=== PATIENT | female | born 1990 | race Two or more races ===

== ENCOUNTER → 2024-02-27 | Outpatient (CLI) | payer MEDICAID, SELFPAY ==
--- NOTE | 2024-02-27 14:16 | XR_ITS ---
Examination: Abdomen AP single view Technique: AP portable supine abdomen, single view Exam date and time: February 27, 2024 1422 hours INDICATIONS: History kidney stones and right ureteral stent placement FINDINGS: Right ureteral stent satisfactory position Stable 8 mm right ureteral calculus approximately compared with December 27, 2023 Small calculi in the lower pole and upper pole right kidney again noted IMPRESSION: Stable 8mm proximal right ureteral calculus
== END | disposition home or self-care (01) ==
PROVIDERS: Referring Provider Surgery; Visit Provider Surgery
DX: N20.1 Calculus of ureter (principal)
CPT/HCPCS: 74018

== ENCOUNTER → 2024-06-09 | Outpatient (CLI) | payer MEDICAID, SELFPAY ==
[2024-06-09 13:13] LABS: HCG Qualitative,Urine Negative
== END | disposition home or self-care (01) ==
LOC: SLAB 06-12 08:13
PROVIDERS: PCP Obstetrics & Gynecology; Referring Provider Surgery; Visit Provider Surgery
PROC: 0DBE8ZX Excision of Large Intestine, Via Natural or Artificial Opening Endoscopic, Diagnostic (ICD-10-PCS; CPT 45380; principal; 2024-06-10 08:00)
DX: K62.5 Hemorrhage of anus and rectum (principal)
CPT/HCPCS: 81025

== ENCOUNTER 2024-06-24 15:21 | Outpatient (AMB) | payer MEDICAID, SELFPAY ==
[2024-06-24 15:56] VITALS: BP 141/96; PULSE 88; RESP 16; TEMP 36.9; O2SAT 98; BMI 35.3
--- NOTE | 2024-06-24 15:56 | OBCLNT_ITS ---
Vital Signs 06/24/24 15:56 Height 1.57 m Height Method Stated Weight 87.543 kg Weight Measurement Method Standing Scale BMI 35.3 BP 141/96 H Blood Pressure Source Automatic Cuff Blood Pressure Location Left Upper Arm Position Sitting Respiration 16 Pulse 88 Pulse Source Monitor Temp 98.4 F Temp Source Oral Pulse Oximetry (%) 98 Oxygen Delivery Method Room Air Allergies/Home Meds Allergies & Medications Allergies No Known Allergies Allergy (Verified 06/24/24 15:58) Medication Reconciliation No Known Home Medications 06/09/24 [History Confirmed 06/24/24] Intake Visit Data Collection New Patient or Established: Established Patient (seen at [facility] within 3 years) Reason for Visit:: INITIAL CARE Seen by Clinical Staff ONLY (RN/MA): No Armature Straightener Required: No Do You Feel Safe at Home: Yes Authorities Contacted: N/A PCP or OBGYN visit in last 3 months: No Hx Now: Yes Are you currently on any form of Control: No Last menstrual period: 11/03/24 Pain Present Currently: No Pain Scale Used: Lewis-Bravo/Numerical Pain scale:: 0 Smoking Status Smoking Status: Never smoker Questionnaires Covid-19 Vaccine Questionnaire Has patient been vacinated for Covid-19 Have you been vacinated for Covid-19: No PHQ-9 PHQ-2 Over the last 2 weeks, how often have you been bothered by any of the following problems? 1. Little interest or pleasure in doing things: not at all 2. Feeling down, depressed, or hopeless: not at all Total score: 0 PHQ-9 3. Trouble falling or staying asleep, or sleeping too much: Not at all 4. Feeling tired or having little energy: Not at all 5. Poor appetite or overeating: Not at all 6. Feeling bad about yourself - or that you are a failure or have let yourself or your family down: Not at all 7. Trouble concentrating on things, such as reading the newspaper or watching television: Not at all 8. Moving or speaking so slowly that other people could have noticed? - Or the opposite - being so fidgety or restless that you have been moving around a lot more than usual: not at all 9. Thoughts that you would be better off or of hurting yourself in some way: Not at all Total score: 0 Source: Developed by Drs. Dheeraj Toro, Felicitas Fitzpatrick, Herb Powell and colleagues, with an educational eduar from [employer]. Depression screen completed yes Social History Living Situation History Marital Status: Lives With: Family Housing: House Tobacco History Smoking Status: Never smoker Second Hand Smoke Exposure: No Alcohol History Alcohol Intake: Never Domestic Abuse History Do You Feel Safe at Home: Yes Past Medical History Past Medical History Have you ever been diagnosed with any of the following: Neurological Problems Cerebrovascular Accident (CVA): No Transient Ischemic Attacks (TIA): No Dementia: No Alzheimer's Disease: No Parkinson's Disease: No Brain Tumor: No Meningitis: No Seizures: No Guillain-[place] Syndrome: No Cardiology Problems Myocardial Infarction: No Cardiac Arrhythmia: No Atrial Fibrillation: No Angina: No Heart Murmur: No Coronary Artery Disease: No Atherosclerotic Heart Disease: No Peripheral Vascular Disease: No Hypercholesterolemia: No Congestive Heart Failure: No Edema: No Cellulitis: No Hypertension: No Varicose Veins: No Respiratory Problems Chronic Obstructive Pulmonary Disease (COPD): No Asthma: No Tuberculosis: No Sleep Apnea: No Hx Cough: No Cough: No Wheezing: No Chest Deformities: No Smoking: No Smoking Cessation Counseling: No Smoking Exposure: No Tobacco Use: No Stomache/Intestinal Problems Liver Cancer: No Hepatitis: No Gall Bladder Disease: Yes Irritable Bowel: No Crohn's Disease: No Genital/Urinary Problems Chronic Kidney Disease: No Renal Disease: No Kidney Stones: Yes (ESWL) Reproductive Problems Breast Cancer: No Endometriosis: No Fibroids: No Genital Herpes: No Previous Pregnancies: Yes (X2) Musculoskeletal Problems Muscular Dystrophy: No Gout: No Head,Eye,Nose,Throat Problems Cataracts: No Glaucoma: No Blind: No Retinal Detachment: No Macular Degeneration: No Chronic Ear Infections: No Deafness: No Eye Prosthesis: No Endocrine Problems Diabetes Mellitus Type 1: No Diabetes Mellitus Type 2: No (FATHER) Boyce's Syndrome: No [place]'s Disease: No Blood Problems Anemia: No Leukemia: No Hemophilia: No Thalassemia: No Sickle Cell Disease: No Psychologic Problems Schizophrenia: No Recreational Drug Use: No Bipolar Disorder: No Depression: No Anxiety: No Other Problems Hospitalization: No Autoimmune Disease: No Down Syndrome: No Autism: No Developmental Delay: No Cosmetic Surgery: No Shingles: No Falls: No Blood Transfusions: No Blood Transfusion Reaction: No Anesthesia Reactions: No Chemotherapy: No Radiation Therapy: No MRSA: No Chicken Pox: Yes Measles: No Mumps: No Cancer: No Surgical History Angioplasty: No Cholecystectomy: Yes Pacemaker: No Additional Surgical History: KIDNEY STONES, LASER SURGERY History of Present Illness HPI Narrative 33-year-old 3 para 2 to the [facility] clinic for first OB appointment. Patient's last period was May 09, 2024. This gives a due date of February 12, 2025. She states her periods are every month they last 5 days. Patient has sure dates. Denies social habits. Patient had her gallbladder removed. She also had kidney stone removed as well.. Denies chronic illness. History of allergies. Patient takes Zyrtec to help with those symptoms. Patient's mother has history of colon cancer. She reports that both of her deliveries were normal and no complications. Reports bleeding x 24 hours yesterday. Bleeding was pink with mucus. Patient denies no bleeding at this time. She also denies any signs and symptoms of early . She has been started on vitamins. Both patient and are happy with OB Initial Visit OB Flowsheet OB Flowsheet Initial Weight: Not Recorded Date -?-?-?-?-?-?-?-?-?--?-?-?- EGA Weight Edema CTX Effacement BP Fundal ht Pres Dilation Effacement Station Visit Note Alb Glu FHR Mov 06/24/24 -?-?-?-?-?-?-?-?-?-?-?-?- 6w 4d 87.543 kg absent absent 141/96 28-year-old 3 para 2 for first visit to [facility] clinic. Patient's last period May 09, 2024. Patient has show dates. This makes her 7 weeks today. Complains of bleeding 24 hours ago. With some mucus. She reports no bleeding today at this time. Denies cramps. Denies signs and symptoms of early . Beta-hCG x 2. OB panel ordered. An ultrasound for rule out SAB and viability. Patient will return after labs and sono are done for further evaluation. And I discussed SAB precautions with patient. Increase rest. Increase fluids. Continue vitamins. Menstrual History Menstrual reliability: definite Flow: normal Menstrual regularity: regular Monthly: Yes Age at menarche: 11 On control pills at conception: No Date of positive home test: 06/10/24 Associated symptoms (LMP): Reports breast tenderness and other (VAGINAL D ISCHARGE) OB History : 3 Para: 2 # of Living Children: 2 Delivery History 1st : Child's name: GABBY date: 12/23/07 sex: female Delivery type: vaginal Delivery complications: NONE History of depression before or after : No 2nd : Child's name: BETO date: 10/07/14 sex: male Delivery type: vaginal Delivery complications: NONE History of depression before or after : No Infection History & Risk Evaluation History of STDs: none HIV risk evaluation: low risk Hepatitis B risk evaluation: low risk Patient or partner has history of Genital Herpes: No Genetic Screening & History Genetic Screening/Teratology Counseling - Includes patient, baby's father, or anyone in either family with: 1. Patient's age 35 years or older as of estimated date of delivery: No 2. Thalassemia (Danish, Estonian, Mediterranean, or Background); MCV less than 80: No 3. Neural Tube Defect (Meningomyelocele, Spina Bifida, or Anencephaly): No 4. Congenital Heart Defect: No 5. Down Syndrome: No 6. Pierre-Sachs (Ashkenazi Sikhism, Cajun, Swedish Somali): No 7. Tate Disease (Ashkenazi Sikhism): No 8. Familial Dysautonomia (Ashkenazi Sikhism): No 9. Sickle Cell Disease or Trait (): No 10. Hemophilia or other blood disorders: No 11. Muscular Dystrophy: No 12. Cystic Fibrosis: No 13. Durham's Chorea: No 14. Mental Retardation/Autism: No 15. Other inherited genetic or chromosomal disorder: No 16. Maternal Metabolic Disorder (EG,TYPE 1 Diabetes, PKU): No 17. Patient or baby's father had a child with defects not listed above: No 18. Recurrent loss or a stillbirth: No 19. Medications (including supplements, vitamins, herbs or otc drugs)/illicit/recreational drugs/alcohol since last menstrual period: No 20. Any other: No Infection History 1. Live with someone with TB or exposed to TB: No 2. Rash or viral illness since last menstrual period: No 3. Hepatitis B,C: No Other (see comments) Source: [employer] Exam General Limitations: no limitations General Appearance: alert, in no apparent distress, comfortable, cooperative, healthy appearing, well developed and well groomed Head Head exam: atraumatic, normocephalic and normal inspection Chest Chest inspection: Present normal inspection and symmetric chest wall rise Resp Respiratory exam: Present normal lung sounds bilaterally Card Cardiovascular exam: Present regular rate, normal rhythm and normal heart sounds Abdominal Abdominal exam: Present soft and normal bowel sounds Psych Psychiatric exam: Present normal affect and normal mood Assessment & Plan Diagnosis / Problem List (1) Encounter for supervision of normal in multigravida in first trimester: Status: Acute (2) , threatened, early : Status: Acute Plan SAB precautions discussed with patient. No heavy lifting. Rest. Continue vitamins. Beta-hCG's time 2. Ordered OB panel. Ordered OB sono with vaginal probe for viability. Return after ultrasound and hCGs for follow- up. ER precautions given to patient Additional Plan Follow Up: 1 Week (OB check) Office Procedures OB Clinic LOC & Office Proc's Nursing/Assessment Patient Status: Established Patient OB Clinic Nursing Assessment: Medication Reconciliation, Update PMH in EMR and Vital Signs OB Clinic Coordination of Care: Complex Care and Chronic Disease 1-5, Consent,records obtained, informed consent, Education Simp Pt/Fam, Lab and Imaging orders, Results/Orders obtained and Staff clarify orders Special Needs: Heart tones Established Patient Charge Established Patient Point Assignment: 135 Established Patient Point Charge: EP Level 4 (120-155)
--- NOTE | 2024-06-30 15:57 | OBCLNT_ITS ---
Vital Signs 06/24/24 15:56 06/30/24 16:04 Height 1.57 m Height Method Stated Weight 87.543 kg Weight Measurement Method Standing Scale BMI 35.3 BP 141/96 H 141/96 H Blood Pressure Source Automatic Cuff Blood Pressure Location Left Upper Arm Position Sitting Respiration 16 16 Pulse 88 88 Pulse Source Monitor Temp 98.4 F 98.4 F Temp Source Oral Pulse Oximetry (%) 98 98 Oxygen Delivery Method Room Air Allergies/Home Meds Allergies & Medications Allergies No Known Allergies Allergy (Verified 06/30/24 15:43) Medication Reconciliation No Known Home Medications 06/09/24 [History Confirmed 06/30/24] Intake Visit Data Collection New Patient or Established: Established Patient (seen at [facility] within 3 years) Reason for Visit:: threatened sab Do You Feel Safe at Home: Yes Authorities Contacted: N/A PCP or OBGYN visit in last 3 months: Yes Smoking Status Smoking Status: Never smoker Questionnaires Covid-19 Vaccine Questionnaire Has patient been vacinated for Covid-19 Have you been vacinated for Covid-19: No PHQ-9 PHQ-2 Over the last 2 weeks, how often have you been bothered by any of the following problems? 1. Little interest or pleasure in doing things: not at all PHQ-9 3. Trouble falling or staying asleep, or sleeping too much: Not at all 4. Feeling tired or having little energy: Not at all 5. Poor appetite or overeating: Not at all 6. Feeling bad about yourself - or that you are a failure or have let yourself or your family down: Not at all 7. Trouble concentrating on things, such as reading the newspaper or watching television: Not at all 8. Moving or speaking so slowly that other people could have noticed? - Or the opposite - being so fidgety or restless that you have been moving around a lot more than usual: not at all Source: Developed by Drs. Dheeraj Toro, Felicitas Fitzpatrick, Herb Powell and colleagues, with an educational eduar from [employer]. Social History Living Situation History Marital Status: Lives With: Family Housing: House Tobacco History Smoking Status: Never smoker Second Hand Smoke Exposure: No Alcohol History Alcohol Intake: Never Domestic Abuse History Do You Feel Safe at Home: Yes Past Medical History Past Medical History Have you ever been diagnosed with any of the following: Neurological Problems Cerebrovascular Accident (CVA): No Transient Ischemic Attacks (TIA): No Dementia: No Alzheimer's Disease: No Parkinson's Disease: No Brain Tumor: No Meningitis: No Seizures: No Guillain-Day[place] Syndrome: No Cardiology Problems Myocardial Infarction: No Cardiac Arrhythmia: No Atrial Fibrillation: No Angina: No Heart Murmur: No Coronary Artery Disease: No Atherosclerotic Heart Disease: No Peripheral Vascular Disease: No Hypercholesterolemia: No Congestive Heart Failure: No Edema: No Cellulitis: No Hypertension: No Varicose Veins: No Respiratory Problems Chronic Obstructive Pulmonary Disease (COPD): No Asthma: No Tuberculosis: No Sleep Apnea: No Hx Cough: No Cough: No Wheezing: No Chest Deformities: No Smoking: No Smoking Cessation Counseling: No Smoking Exposure: No Tobacco Use: No Stomache/Intestinal Problems Liver Cancer: No Hepatitis: No Gall Bladder Disease: Yes Irritable Bowel: No Crohn's Disease: No Genital/Urinary Problems Chronic Kidney Disease: No Renal Disease: No Kidney Stones: Yes (ESWL) Reproductive Problems Breast Cancer: No Endometriosis: No Fibroids: No Genital Herpes: No Previous Pregnancies: Yes (X2) Musculoskeletal Problems Muscular Dystrophy: No Gout: No Head,Eye,Nose,Throat Problems Cataracts: No Glaucoma: No Blind: No Retinal Detachment: No Macular Degeneration: No Chronic Ear Infections: No Deafness: No Eye Prosthesis: No Endocrine Problems Diabetes Mellitus Type 1: No Diabetes Mellitus Type 2: No (FATHER) Dike's Syndrome: No Haines's Disease: No Blood Problems Anemia: No Leukemia: No Hemophilia: No Thalassemia: No Sickle Cell Disease: No Psychologic Problems Schizophrenia: No Recreational Drug Use: No Bipolar Disorder: No Depression: No Anxiety: No Other Problems Hospitalization: No Down Syndrome: No Autism: No Developmental Delay: No Cosmetic Surgery: No Shingles: No Falls: No Blood Transfusions: No Blood Transfusion Reaction: No Anesthesia Reactions: No Chemotherapy: No Radiation Therapy: No MRSA: No Chicken Pox: Yes Measles: No Mumps: No Cancer: No Surgical History Angioplasty: No Cholecystectomy: Yes Pacemaker: No Additional Surgical History: KIDNEY STONES, LASER SURGERY History of Present Illness HPI Narrative 33-year-old 3 para 2 for follow-up to [facility]. Patient reports heavier bleeding on 06/26/24 and she went to [facility] ED for evaluation. June 26 ultrasound showed empty uterus. Normal endometrial stripe of 0.6. No masses. No evidence of intrauterine . Ovaries were normal. It was a negative pelvic exam. hCG x 2 were done. Patient reports spotting now. No complaints of pain. OB sono has not been scheduled yet at [facility]. No other complaints. Review of Systems Review of Systems Systems Reviewed: All systems reviewed, normal except as documented Visit OB Visit Log OB Flowsheet Initial Weight: Not Recorded Date -?-?-?-?-?-?-?-?-?-?-?-?- EGA Weight Edema CTX Effacement BP Fundal ht Pres Dilation Effacement Station Visit Note Alb Glu FHR Mov 06/24/24 -?-?-?-?-?-?-?-?-?-?-?-?- 6w 4d 87.543 kg absent absent 141/96 141/96 28-year-old g ravida 3 para 2 for first visit to [facility] OB clinic. Patient's last period May 09, 2024. Patient has show dates. This makes her 7 weeks today. Complains of bleeding 24 hours ago. With some mucus. She reports no bleeding today at this time. Denies cramps. Denies signs and symptoms of early . Beta-hCG x 2. OB panel ordered. An ultrasound for rule out SAB and viability. Patient will return after labs and sono are done for further evaluation. And I discussed SAB precautions with patient. Increase rest. Increase fluids. Continue vitamins. ALEXANDRA Calculator Estimated Delivery Date Method Current WG Current Estimate 02/13/25 LMP (Certain) 7w 3d Results Objective Laboratory: HC/16: 321, 06/26: 466 Imagin/17: empty uterus, no IUP seen, no pelvic mass, normal uterine size Exam Narrative Physical exam: OB ultrasound June 26 the uterus was measuring 8.5 cm. Endometrial stripe was 0.6 cm. There was no noted mass loss, no fibroids, no intrauterine noted. Both ovaries were normal in size no cystic structure seen. And negative pelvic exam. Abdomen is soft and nontender. hcg 06/25/24: 321. repeat hc General Limitations: no limitations General Appearance: alert, in no apparent distress, comfortable, cooperative, healthy appearing, well developed and well groomed Head Head exam: atraumatic, normocephalic and normal inspection Eye Eye exam: Present normal appearance, PERRL and EOMI ENT ENT exam: Present normal exam, normal oropharynx and mucous membranes moist Neck Neck exam: Present normal inspection, full ROM and trachea midline Chest Chest inspection: Present normal inspection and symmetric chest wall rise Resp Respiratory exam: Present normal lung sounds bilaterally Card Cardiovascular exam: Present regular rate, normal rhythm and normal heart sounds Abdominal Abdominal exam: Present soft and normal bowel sounds Extremities Extremities exam: Present normal inspection and full ROM Back Back exam: Present normal inspection and full ROM Neuro Neurological exam: Present alert, oriented X3 and CN II-XII intact Psych Psychiatric exam: Present normal affect and normal mood Skin Skin exam: Present warm, dry, intact and normal color Assessment & Plan Diagnosis / Problem List (1) , threatened, early : Status: Acute Plan Continue with SAB precautions. hCG today and then patient will repeat hCG 07/10. Keep appointment with [facility] for ultrasound. Discussed ER precautio ns and parameters. Rest. Return after pelvic ultrasound and hCG's for results. Additional Plan Follow Up: 2 Weeks (f/u threatened SAB) Office Procedures OB Clinic LOC & Office Proc's Nursing/Assessment Patient Status: Established Patient OB Clinic Nursing Assessment: Medication Reconciliation, Update PMH in EMR and Vital Signs OB Clinic Coordination of Care: Complex Care and Chronic Disease 1-5, Consent,records obtained, informed consent, Education Simp Pt/Fam, Lab and Imaging orders, Results/Orders obtained and Staff clarify orders Special Needs: Heart tones Established Patient Charge Established Patient Point Assignment: 135 Established Patient Point Charge: EP Level 4 (120-155)
[2024-06-30 16:04] VITALS: BP 141/96; PULSE 88; RESP 16; TEMP 36.9; O2SAT 98
== END 2024-06-24 16:23 | disposition home or self-care (01) ==
LOC: HODSOBC 15:21
PROVIDERS: PCP Obstetrics & Gynecology; Referring Provider Obstetrics & Gynecology; Supervising Provider Advanced Practice Midwife; Visit Provider Advanced Practice Midwife
DX: O20.0 Threatened abortion (principal); Z3A.01 Less than 8 weeks gestation of pregnancy
CPT/HCPCS: 99214; G0463

== ENCOUNTER 2024-06-26 15:16 | Emergency (ER) | payer MEDICAID, SELFPAY ==
[2024-06-26 15:17] VITALS: BMI 34.7
[2024-06-26 16:16] VITALS: BP 149/90; PULSE 85; RESP 16; TEMP 37.3; O2SAT 100
--- NOTE | 2024-06-26 16:25 | XR_ITS ---
Examination: Complete OB ultrasound, less than 14 weeks, transabdominal Date and time of exam: June 1703 hrs. Indications: Pelvic pain and cramping vaginal bleeding beginning one week ago Technique: Obstetrical ultrasound images less than 14 weeks performed via transabdominal imaging Findings: Uterus 8.5 cm endometrial stripe 0.6 cm No uterine mass or intrauterine gestation Right ovary 2.9 cm arterial flow Left ovary 3.8 cm arterial flow Impression: Negative examination
--- NOTE | 2024-06-26 16:26 | PD.EDRME ---
Rapid Medical Screening Exam RME Arrival date/time: 06/26/24 15:16 33-year-old female presents the emergency department with complaints of vaginal bleeding approximately 8 weeks of gestation. I have greeted and performed a focused initial assessment of this patient. Initial appropriate labs ordered at this time. A comprehensive ED assessment and evaluation of the patient and analysis of all test and completion of medical decision making process will be conducted by additional ED provider. Chief Complaint: Vaginal Bleeding Time Seen by Provider: 06/26/24 16:12 Vital signs: Vital Signs Temperature 99.1 F 06/26/24 16:16 Pulse Rate 85 06/26/24 16:16 Respiratory Rate 16 06/26/24 16:16 Blood Pressure 149/90 H 06/26/24 16:16 Pulse Oximetry (%) 100 06/26/24 16:16 Oxygen Delivery Method Room Air 06/26/24 16:16
[2024-06-26 16:48] LABS: Basophils # (Auto) 0.1 Thou/mm3 (0.0-0.2); Basophils % (Auto) 1 % (0-2.5); Eosinophils # (Auto) 0.1 Thou/mm3 (0.0-0.5); Eosinophils % (Auto) 1 % (0-10); Hematocrit 40.1 % (36.0-46.0); Immature Granulocytes % (Auto) 1 % (0-0); Lymphocytes # (Auto) 3.6 Thou/mm3 (1.0-4.8); Lymphocytes % (Auto) 34 % (10-50); Mean Corpuscular HGB Conc 34.9 g/dl (31.0-37.0); Mean Corpuscular Hemoglobin 31.8 pg (25.0-35.0); Mean Corpuscular Volume 91 fL (80-100); Monocytes # (Auto) 0.8 Thou/mm3 (0.0-0.8); Monocytes % (Auto) 7 % (0-12); Neutrophils % (Auto) 56 % (37-80); Nucleated Red Blood Cell % 0 /100 WBC (0); Platelet Count 323 Thou/mm3 (140-440); RDW Standard Deviation 41.4 fL (36.4-46.3); White Blood Count 10.7 Thou/mm3 (3.6-11.0)
[2024-06-26 17:14] LABS: Alanine Aminotransferase 40 U/L (10-49); Albumin, Serum 4.4 gm/dL (3.5-5.0); Albumin/Globulin Ratio 1.5 (1.2-2.2); Alkaline Phosphatase 60 U/L (46-116); Anion Gap 8 (7-16); Aspartate Amino Transferase 25 U/L (0-34); BUN/Creatinine Ratio 10 Ratio (12-20); Beta HCG,Quantitative 466 mIU/mL (<5.0); Bilirubin,Total 0.4 mg/dL (0.3-1.2); Blood Urea Nitrogen 6 mg/dL (9-23); Calcium 9.2 mg/dL (8.3-10.6); Calcium (Corrected) 9.2 mg/dL (8.5-10.1); Carbon Dioxide 24.5 mMol/L (20.0-31.0); Chloride 109 mMol/L (98-107); Creatinine (Component) 0.6 mg/dL (0.6-1.3); Estimated Creatinine Clearance 135.9 mL/min (>60); Globulin 2.9 gm/dL (2.3-3.5); Glucose 92 mg/dL (74-106); Osmolality,Calculated 278 (275-295); Sodium 141 mMol/L (136-145); Total Protein 7.3 gm/dL (5.7-8.2); eGFR > 60 See Note
[2024-06-26 18:28] LABS: Collection Type, Urine Clean Catch
[2024-06-26 18:37] LABS: Bilirubin,Urine Negative (Negative); Blood,Urine 2+ (Negative); Clarity,Urine Clear (Clear/Hazy); Color,Urine Lt-Yellow (Lt Yel-Yel); Glucose, Urine Negative (Negative); Ketones,Urine Negative (Negative); Leukocyte Esterase,Urine Positive (Negative); Nitrite,Urine Negative (Negative); PH,Urine 6.5 (5.0-7.0); Protein,Urine Negative (Neg - Trace); RBC,Urine 3 /hpf (0-3); Specific Gravity,Urine 1.011 (1.001-1.035); Squamous Epithelial Cell,Urine 4 /hpf (0-5); Urobilinogen,Urine Negative mg/dL (0.0-1.0); WBC,Urine 9 /hpf (0-5)
[2024-06-26 19:38] VITALS: BP 160/80; PULSE 91; RESP 18; TEMP 36.4; O2SAT 98
--- NOTE | 2024-06-26 19:42 | EDNOTE_ITS ---
ED OB Contraction Preg RMI/HPI General Chief complaint: Vaginal Bleeding Stated complaint: 7 WKS OB- VAGINAL BLEED Time Seen by Provider: 06/26/24 16:12 Arrival date/time: 06/26/24 15:16 RME / HPI RME / HPI Narrative: 33-year-old female patient 3 para 2, about 8 weeks , came in for evaluation regarding vaginal bleeding. Patient's been having vaginal bleeding for the last 4 to 5 days, changing 1-2 pads per day. Associated with pelvic cramping. Patient was seen by ASSISTANT MANAGER/EMBALMER and was told that she is 8 weeks . Patient denies any other complaints Related Data Home Medications ?Medication ?Instructions ?Recorded ?Confirmed No Known Home Medications 06/09/2406/10 Allergies Allergy/AdvReac Type Severity Reaction Status Date / Time No Known Allergies Allergy Verified 06/26/24 15:19 Review of Systems Review of Systems Narrative Review of Systems: Review of system reviewed and within normal limits except mentioned in HPI ED Exam Narrative Physical exam: VITAL SIGNS: Reviewed. GENERAL APPEARANCE: Alert and interactive, follows commands, no acute distress, HEAD AND FACE: Non-traumatic. ENT: PERRL, pink conjunctivitis, eyelid no trauma, Mucous membrane moist. NECK: Supple, nontender, no nuchal rigidity. CHEST: No tenderness, no crepitus, no paradoxical movement, no retractions. LUNGS: Clear, well ventilated, symmetric, no rales, no wheezing, no ronchi, no stridor, good breath sounds bilaterally. HEART: Regular rate, regular rhythm, no murmur, no gallops. ABDOMEN: Soft, positive bowel sounds, nondistended, no guarding, nontender, no rebound, no masses, RECTAL: Deferred. GENITAL: Deferred. NEUROLOGICAL: Gross motor function intact sensory function intact, Appropriate for age. MUSCULOSKELETAL: low back nontender, full range of motion. EXTREMITIES: Nontender, full range of motion. SKIN: Color pink, dry, no rash, no lacerations, no abrasions, no contusions. LYMPHATICS: Deferred. Course Quality Measures none Orders Category Date Time Status US OB <= 14 weeks fetus Stat Exams 06/26/24 16:25 Completed ABO/RH Type Stat Lab 06/26/24 16:33 Completed Beta HCG,Quantitative Stat Lab 06/26/24 16:33 Completed CBC Stat Lab 06/26/24 16:33 Completed Comprehensive Metabolic Panel Stat Lab 06/26/24 16:33 Completed Urinalysis Stat Lab 06/26/24 18:20 Completed Urine Culture Stat Lab 06/26/24 18:20 Received Vital Signs Vital signs: Vital Signs Temperature 99.1 F 06/26/24 16:16 Pulse Rate 85 06/26/24 16:16 Respiratory Rate 16 06/26/24 16:16 Blood Pressure 149/90 H 06/26/24 16:16 Pulse Oximetry (%) 100 06/26/24 16:16 Oxygen Delivery Method Room Air 06/26/24 16:16 Vaginal Bleeding MDM Narrative MDM Narrative: 33-year-old female patient 3 para 2, about 8 weeks , came in for evaluation regarding vaginal bleeding. Patient's been having vaginal bleeding for the last 4 to 5 days, changing 1-2 pads per day. Associated with pelvic cramping. Patient was seen by ASSISTANT MANAGER/EMBALMER and was told that she is 8 weeks . Patient denies any other complaints Patient's workup today is significant for hCG of 466, ultrasound of the showed no intrauterine gestation. There is no sign of anemia. Patient is probably having completed versus threatened . Patient was advised to return to emergency room in 2 to 3 days for repeat hCG. Patient data External records reviewed:: None Clinical information provided by:: patient Social determinants that could affect healthcare access:: none Patient has the following chronic illnesses:: None How is presenting disease/condition affected by chronic disease/condition?: no chronic disease Evaluation data The following diagnostics were reviewed and interpreted by me:: lab results and radiology exam(s) Lab and/or radiology exams considered but not ordered:: None Interpretation Summary: See results [facility] Medications / Prescriptions Medications or Prescriptions considered but not ordered:: None Medication administrations:: None Consultations Consultation(s) initiated? (list below): No Diagnosis Vaginal Bleeding Differential Diagnosis: threatened , incomplete and vaginal bleeding Most likely diagnosis given after review of the tests above:: Bleeding in early Admission Indicated Admission indicated?: not indicated Admission Request Was there a request for admission?: No Disposition Plan Disposition Plan: Discharge Discharge Attestation Discharge Attestation: The patient was given an opportunity to ask questions and understood the discharge instructions. Discharge instructions specifically effects, indica tions for sooner follow up or return to the emergency department, and the expected course of current diagnosis. Patient condition: Stable Discharge Plan Plan Patient Disposition: HOME (Self Care) Disposition Comment: Stable Prescriptions/Referrals Prescriptions/Med Rec: No Action No Known Home Medications Referrals: No Primary/Family,Physician [Primary Care Provider] - In 1 week Problem List Clinical Impression: Vaginal bleeding affecting early Patient/Caregiver Discharge Instructions Education Materials: Bleeding During Early Additional Instructions: Thank you for the opportunity for serving you today. You are stable for discharged . You are advised to: Follow-up with your ASSISTANT MANAGER/EMBALMER in 1 to 2 days Return to emergency room in 2 to 3 days for repeat hCG Return to ED for worsening of symptoms Increase oral fluids Pelvic rest no sex for 1 week or until cleared by ASSISTANT MANAGER/EMBALMER Print Language: Monegasque Stand Alone Forms: Honey Award Info., Patient Portal Info Letter CHRIST/FRANK Supervising Physician CHRIST/FRANK Supervising Physician: MD Magalys
== END 2024-06-26 19:48 | disposition home or self-care (01) ==
PROVIDERS: Nurse Practitioner Primary Care; Emergency Provider Emergency Medicine
DX: O20.9 Hemorrhage in early pregnancy, unspecified (principal); Z3A.08 8 weeks gestation of pregnancy
CPT/HCPCS: 36415; 76801; 80053; 81001; 84702; 85025; 86900; 86901; 87086; 99284

== ENCOUNTER 2024-06-30 14:54 | Outpatient (AMB) | payer MEDICAID, SELFPAY ==
[2024-06-30 15:42] VITALS: BP 145/96; PULSE 89; RESP 18; TEMP 36.2; O2SAT 99; BMI 37.1
--- NOTE | 2024-06-30 15:42 | AMB.GYNCLNOT ---
Vital Signs 06/30/24 15:42 Height 1.54 m Height Method Stated Weight 88.11 kg Weight Measurement Method Standing Scale BMI 37.1 BP 145/96 H Blood Pressure Source Automatic Cuff Blood Pressure Location Left Upper Arm Position Sitting Respiration 18 Pulse 89 Pulse Source Monitor Temp 97.2 F Temp Source Oral Pulse Oximetry (%) 99 Oxygen Delivery Method Room Air Allergies/Home Meds Allergies & Medications Allergies No Known Allergies Allergy (Verified 06/30/24 15:43) Medication Reconciliation No Known Home Medications 06/09/24 [History Confirmed 06/30/24] Intake Visit Data Collection New Patient or Established: Established Patient (seen at [facility] within 3 years) Reason for Visit:: follow up on possible miscarriage Seen by Clinical Staff ONLY (RN/MA): No Center Receptionist Required: No Do You Feel Safe at Home: Yes Authorities Contacted: N/A PCP or OBGYN visit in last 3 months: Yes Date of Last PCP or OBGYN visit: 06/24/24 Hx Now: No Are you currently on any form of Control: No Pain Present Currently: No Pain Scale Used: Lewis-Bravo/Numerical Pain scale:: 0 Smoking Status Smoking Status: Never 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 1. Little interest or pleasure in doing things: not at all 2. Feeling down, depressed, or hopeless: not at all Total score: 0 PHQ-9 3. Trouble falling or staying asleep, or sleeping too much: Not at all 4. Feeling tired or having little energy: Not at all 5. Poor appetite or overeating: Not at all 6. Feeling bad about yourself - or that you are a failure or have let yourself or your family down: Not at all 7. Trouble concentrating on things, such as reading the newspaper or watching television: Not at all 8. Moving or speaking so slowly that other people could have noticed? - Or the opposite - being so fidgety or restless that you have been moving around a lot more than usual: not at all 9. Thoughts that you would be better off or of hurting yourself in some way: Not at all Total score: 0 If you checked off any problems, how difficult have these problems made it for you to do your work, take care of things at home, or get along with other people?: not difficult at all Source: Developed by Drs. Dheeraj Toro, Felicitas Fitzpatrick, Herb Powell and colleagues, with an educational eduar from [employer]. Depression screen completed yes Social History Living Situation History Lives With: Family Housing: House Tobacco History Smoking Status: Never smoker Second Hand Smoke Exposure: No Alcohol History Alcohol Intake: Never Domestic Abuse History Do You Feel Safe at Home: Yes Past Medical History Past Medical History Have you ever been diagnosed with any of the following: Neurological Problems Cerebrovascular Accident (CVA): No Transient Ischemic Attacks (TIA): No Dementia: No Alzheimer's Disease: No Parkinson's Disease: No Brain Tumor: No Meningitis: No Seizures: No Guillain-[place] Syndrome: No Cardiology Problems Myocardial Infarction: No Cardiac Arrhythmia: No Atrial Fibrillation: No Angina: No Heart Murmur: No Coronary Artery Disease: No Atherosclerotic Heart Disease: No Peripheral Vascular Disease: No Hypercholesterolemia: No Congestive Heart Failure: No Edema: No Cellulitis: No Hypertension: No Varicose Veins: No Respiratory Problems Chronic Obstructive Pulmonary Disease (COPD): No Asthma: No Tuberculosis: No Sleep Apnea: No Hx Cough: No Cough: No Wheezing: No Chest Deformities: No Smoking: No Smoking Cessation Counseling: No Smoking Exposure: No Tobacco Use: No Stomache/Intestinal Problems Liver Cancer: No Hepatitis: No Gall Bladder Disease: Yes Irritable Bowel: No Crohn's Disease: No Genital/Urinary Problems Renal Disease: No Kidney Stones: Yes (ESWL) Reproductive Problems Breast Cancer: No Endometriosis: No Fibroids: No Genital Herpes: No Previous Pregnancies: Yes (X2) Musculoskeletal Problems Muscular Dystrophy: No Gout: No Head,Eye,Nose,Throat Problems Cataracts: No Glaucoma: No Blind: No Retinal Detachment: No Macular Degeneration: No Chronic Ear Infections: No Deafness: No Eye Prosthesis: No Endocrine Problems Diabetes Mellitus Type 1: No Diabetes Mellitus Type 2: No (FATHER) Semmes's Syndrome: No Christian's Disease: No Blood Problems Anemia: No Leukemia: No Hemophilia: No Thalassemia: No Sickle Cell Disease: No Psychologic Problems Schizophrenia: No Recreational Drug Use: No Bipolar Disorder: No Depression: No Anxiety: No Other Problems Hospitalization: No Down Syndrome: No Autism: No Developmental Delay: No Cosmetic Surgery: No Shingles: No Falls: No Blood Transfusions: No Blood Transfusion Reaction: No Anesthesia Reactions: No Chemotherapy: No Radiation Therapy: No MRSA: No Chicken Pox: Yes Measles: No Mumps: No Cancer: No Surgical History Angioplasty: No Cholecystectomy: Yes Pacemaker: No Office Procedures OB Clinic LOC & Office Proc's Nursing/Assessment Patient Status: Established Patient OB Clinic Nursing Assessment: BP Monitoring, Medication Reconciliation, Update PMH in EMR and Vital Signs OB Clinic Coordination of Care: Consent,records obtained, informed consent, Education Simp Pt/Fam, Lab and Imaging orders and Staff clarify orders Established Patient Charge Established Patient Point Assignment: 90 Established Patient Point Charge: EP Level 3 (80-115)
== END 2024-06-30 15:55 | disposition home or self-care (01) ==
LOC: HODSOBC 14:54
PROVIDERS: Supervising Provider Advanced Practice Midwife; Visit Provider Advanced Practice Midwife
DX: O20.0 Threatened abortion (principal); Z3A.01 Less than 8 weeks gestation of pregnancy
CPT/HCPCS: 99213; G0463

== ENCOUNTER 2024-07-09 16:07 | Outpatient (AMB) | payer MEDICAID, SELFPAY ==
--- NOTE | 2024-07-09 16:02 | AMB.GYNCLNOT ---
Allergies/Home Meds Allergies & Medications Allergies No Known Allergies Allergy (Verified 07/09/24 16:03) Medication Reconciliation No Known Home Medications 06/09/24 [History Confirmed 07/09/24] Intake Visit Data Collection New Patient or Established: Established Patient (seen at [facility] within 3 years) Reason for Visit:: U/S AND LAB RESULTS Consent obtained for Telemed Visit: Yes Seen by Clinical Staff ONLY (RN/MA): No Account Services Associate Required: No Do You Feel Safe at Home: Yes Authorities Contacted: N/A PCP or OBGYN visit in last 3 months: Yes Hx Now: Yes Are you currently on any form of Control: No Pain Present Currently: No Pain Scale Used: Lewis-Bravo/Numerical Pain scale:: 0 Smoking Status Smoking Status: Never smoker For Telemed visit only Telemed Video/Phone Visit: Yes Verbal consent obtained for Telemed visit?: Yes Verbal Consent witness name: WALTER GITA Talbot Covid-19 Vaccine Questionnaire Has patient been vacinated for Covid-19 Have you been vacinated for Covid-19: Yes PHQ-9 PHQ-2 Over the last 2 weeks, how often have you been bothered by any of the following problems? 1. Little interest or pleasure in doing things: not at all 2. Feeling down, depressed, or hopeless: not at all Total score: 0 PHQ-9 3. Trouble falling or staying asleep, or sleeping too much: Not at all 4. Feeling tired or having little energy: Not at all 5. Poor appetite or overeating: Not at all 6. Feeling bad about yourself - or that you are a failure or have let yourself or your family down: Not at all 7. Trouble concentrating on things, such as reading the newspaper or watching television: Not at all 8. Moving or speaking so slowly that other people could have noticed? - Or the opposite - being so fidgety or restless that you have been moving around a lot more than usual: not at all 9. Thoughts that you would be better off or of hurting yourself in some way: Not at all Total score: 0 Source: Developed by Drs. Dheeraj Toro, Felicitas Fitzpatrick, Herb Powell and colleagues, with an educational eduar from [email or web address]. Depression screen completed yes Social History Living Situation History Lives With: Family Housing: House Tobacco History Smoking Status: Never smoker Second Hand Smoke Exposure: No Alcohol History Alcohol Intake: Never Domestic Abuse History Do You Feel Safe at Home: Yes Past Medical History Past Medical History Have you ever been diagnosed with any of the following: Neurological Problems Cerebrovascular Accident (CVA): No Transient Ischemic Attacks (TIA): No Dementia: No Alzheimer's Disease: No Parkinson's Disease: No Brain Tumor: No Meningitis: No Seizures: No Guillain-[place] Syndrome: No Cardiology Problems Myocardial Infarction: No Cardiac Arrhythmia: No Atrial Fibrillation: No Angina: No Heart Murmur: No Coronary Artery Disease: No Atherosclerotic Heart Disease: No Peripheral Vascular Disease: No Hypercholesterolemia: No Congestive Heart Failure: No Edema: No Cellulitis: No Hypertension: No Varicose Veins: No Respiratory Problems Chronic Obstructive Pulmonary Disease (COPD): No Asthma: No Tuberculosis: No Sleep Apnea: No Hx Cough: No Cough: No Wheezing: No Chest Deformities: No Smoking: No Smoking Cessation Counseling: No Smoking Exposure: No Tobacco Use: No Stomache/Intestinal Problems Liver Cancer: No Hepatitis: No Gall Bladder Disease: Yes Irritable Bowel: No Crohn's Disease: No Genital/Urinary Problems Renal Disease: No Kidney Stones: Yes (ESWL) Reproductive Problems Breast Cancer: No Endometriosis: No Fibroids: No Genital Herpes: No Previous Pregnancies: Yes (X2) Musculoskeletal Problems Muscular Dystrophy: No Gout: No Head,Eye,Nose,Throat Problems Cataracts: No Glaucoma: No Blind: No Retinal Detachment: No Macular Degeneration: No Chronic Ear Infections: No Deafness: No Eye Prosthesis: No Endocrine Problems Diabetes Mellitus Type 1: No Diabetes Mellitus Type 2: No (FATHER) Rolando's Syndrome: No [place]'s Disease: No Blood Problems Anemia: No Leukemia: No Hemophilia: No Thalassemia: No Sickle Cell Disease: No Psychologic Problems Schizophrenia: No Recreational Drug Use: No Bipolar Disorder: No Depression: No Anxiety: No Other Problems Hospitalization: No Down Syndrome: No Autism: No Developmental Delay: No Cosmetic Surgery: No Shingles: No Falls: No Blood Transfusions: No Blood Transfusion Reaction: No Anesthesia Reactions: No Chemotherapy: No Radiation Therapy: No MRSA: No Chicken Pox: Yes Measles: No Mumps: No Cancer: No Surgical History Angioplasty: No Cholecystectomy: Yes Pacemaker: No History of Present Illness HPI Narrative 34-year-old 3 para 2 with complaints of continued bleeding for the last week. Patient reports that bleeding is brighter red and heavier in nature. Patient was previously seen in the ER June 26 for similar complaint. Pelvic sono was done and showed no retained products and no pole. An hCG was 466. Patient was then seen here at [facility] OB clinic July 01. I reviewed results and sono with patient. hCG x 2 was ordered and OB sono was ordered. Sono results are pending. hCG done July 01 was 1200. Review of Systems Review of Systems Systems Reviewed: All systems reviewed, normal except as documented Exam Narrative Physical exam: see technician inventory specialist progress note/virtual/telemed appointment Results Objective Laboratory: 06/26: 466 07/01 hc Assessment & Plan Diagnosis / Problem List (1) , threatened, early : Status: Acute Plan Call [facility] for sono results. Results will be faxed tomorrow morning. Advised patient to get second hCG. When patient discussed increased bleeding that was bright red I advised patient to go to ER for evaluation. So review SAB precautions and ER precautions. Patient will follow-up July 10 for sono results. Additional Plan Follow Up: 1 Day (f/u sono results) Office Procedures OB Clinic LOC & Office Proc's Nursing/Assessment Patient Status: Established Patient OB Clinic Nursing Assessment: Medication Reconciliation and Update PMH in EMR OB Clinic Coordination of Care: Complex Care and Chronic Disease 1-5, Consent,records obtained, informed consent, Education Simp Pt/Fam, Results/Orders obtained and Staff clarify orders Established Patient Charge Established Patient Point Assignment: 75 Telehealth If patient is seen using Teleconference methods, complete New/Est section, but DO NOT kath points only kath the correct Telemed visit type Telemed Phone/Video with patient at home & Dr,PA,AUTO MECHANIC: Yes
--- NOTE | 2024-07-09 16:11 | AMB.GYNCLNOT ---
Allergies/Home Meds Allergies & Medications Allergies No Known Allergies Allergy (Verified 07/09/24 16:03) Medication Reconciliation No Known Home Medications 06/09/24 [History Confirmed 07/09/24] Intake Visit Data Collection Do You Feel Safe at Home: Yes Smoking Status Smoking Status: Never smoker Questionnaires Covid-19 Vaccine Questionnaire Has patient been vacinated for Covid-19 Have you been vacinated for Covid-19: Yes PHQ-9 PHQ-2 Over the last 2 weeks, how often have you been bothered by any of the following problems? 1. Little interest or pleasure in doing things: not at all PHQ-9 3. Trouble falling or staying asleep, or sleeping too much: Not at all 4. Feeling tired or having little energy: Not at all 5. Poor appetite or overeating: Not at all 6. Feeling bad about yourself - or that you are a failure or have let yourself or your family down: Not at all 7. Trouble concentrating on things, such as reading the newspaper or watching television: Not at all 8. Moving or speaking so slowly that other people could have noticed? - Or the opposite - being so fidgety or restless that you have been moving around a lot more than usual: not at all Total score: 0 Source: Developed by Drs. Dheeraj Toro, Felicitas Fitzpatrick, Herb Powell and colleagues, with an educational eduar from [employer]. Social History Living Situation History Lives With: Family Housing: House Tobacco History Smoking Status: Never smoker Second Hand Smoke Exposure: No Alcohol History Alcohol Intake: Never Domestic Abuse History Do You Feel Safe at Home: Yes Past Medical History Past Medical History Have you ever been diagnosed with any of the following: Neurological Problems Cerebrovascular Accident (CVA): No Transient Ischemic Attacks (TIA): No Dementia: No Alzheimer's Disease: No Parkinson's Disease: No Brain Tumor: No Meningitis: No Seizures: No Guillain-Marshall Syndrome: No Cardiology Problems Myocardial Infarction: No Cardiac Arrhythmia: No Atrial Fibrillation: No Angina: No Heart Murmur: No Coronary Artery Disease: No Atherosclerotic Heart Disease: No Peripheral Vascular Disease: No Hypercholesterolemia: No Congestive Heart Failure: No Edema: No Cellulitis: No Hypertension: No Varicose Veins: No Respiratory Problems Chronic Obstructive Pulmonary Disease (COPD): No Asthma: No Tuberculosis: No Sleep Apnea: No Hx Cough: No Cough: No Wheezing: No Chest Deformities: No Smoking: No Smoking Cessation Counseling: No Smoking Exposure: No Tobacco Use: No Stomache/Intestinal Problems Liver Cancer: No Hepatitis: No Gall Bladder Disease: Yes Irritable Bowel: No Crohn's Disease: No Genital/Urinary Problems Renal Disease: No Kidney Stones: Yes (ESWL) Reproductive Problems Breast Cancer: No Endometriosis: No Fibroids: No Genital Herpes: No Previous Pregnancies: Yes (X2) Musculoskeletal Problems Muscular Dystrophy: No Gout: No Head,Eye,Nose,Throat Problems Cataracts: No Glaucoma: No Blind: No Retinal Detachment: No Macular Degeneration: No Chronic Ear Infections: No Deafness: No Eye Prosthesis: No Endocrine Problems Diabetes Mellitus Type 1: No Diabetes Mellitus Type 2: No (FATHER) Brodhead's Syndrome: No [place]'s Disease: No Blood Problems Anemia: No Leukemia: No Hemophilia: No Thalassemia: No Sickle Cell Disease: No Psychologic Problems Schizophrenia: No Recreational Drug Use: No Bipolar Disorder: No Depression: No Anxiety: No Other Problems Hospitalization: No Down Syndrome: No Autism: No Developmental Delay: No Cosmetic Surgery: No Shingles: No Falls: No Blood Transfusions: No Blood Transfusion Reaction: No Anesthesia Reactions: No Chemotherapy: No Radiation Therapy: No MRSA: No Chicken Pox: Yes Measles: No Mumps: No Cancer: No Surgical History Angioplasty: No Cholecystectomy: Yes Pacemaker: No History of Present Illness HPI Narrative 34-year-old multipara for complaints of increased bleeding. Patient was seen July 01 for incomplete SAB. At the time she was saying that her discharge was brownish in color. Now she reports that she has been bleeding heavy and bright red for the last week. Ultrasound results are not available. Patient's last hCG was 1200. No complaints of pain. Results Objective Laboratory: hcg : 1200, increased from 321 Imaging: sono pending Assessment & Plan Diagnosis / Problem List (1) , threatened, early : Status: Acute Plan SAB precaution, To ER for red bleeding. hcg in 2 days. called for sono results. . Rest, fluids continue PNV. ER precaution Office Procedures OB Clinic LOC & Office Proc's Nursing/Assessment Patient Status: Established Patient OB Clinic Nursing Assessment: Medication Reconciliation and Update PMH in EMR OB Clinic Coordination of Care: Complex Care and Chronic Disease 1-5, Consent,records obtained, informed consent, Education Simp Pt/Fam, Results/Orders obtained and Staff clarify orders Established Patient Charge Established Patient Point Assignment: 75 Telehealth If patient is seen using Teleconference methods, complete New/Est section, but DO NOT kath points only kath the correct Telemed visit type Telemed Phone/Video with patient at home & Dr,PA,[employer] OFFICER: Yes
== END 2024-07-09 16:34 | disposition home or self-care (01) ==
LOC: HODSOBC 16:07
PROVIDERS: Supervising Provider Advanced Practice Midwife; Visit Provider Advanced Practice Midwife
DX: O20.0 Threatened abortion (principal); Z3A.00 Weeks of gestation of pregnancy not specified
CPT/HCPCS: 99212; G0463

== ENCOUNTER 2024-07-11 10:29 | Day surgery (SDC) | payer MEDICAID, SELFPAY ==
[2024-07-11] VITALS (11 sets, daily range): BP systolic 116–156; BP diastolic 77–91; PULSE 79–137; RESP 12–20; TEMP 36.4–37.1; O2SAT 95–100; BMI 36.2
--- NOTE | 2024-07-11 10:54 | XR_ITS ---
Examination: Complete OB ultrasound, less than 14 weeks, transabdominal Date and time of exam: June 11, 2024 1133 hours INDICATIONS: Vaginal bleeding beginning May 10, 2024 Technique: Obstetrical ultrasound images less than 14 weeks performed via transabdominal imaging Findings: Uterus 9.7 cm endometrial stripe 0.5 cm No intrauterine gestation Right ovary 2.9 cm arterial flow Left ovary 3.1 cm arterial flow Gestational sac like area adjacent to the left ovary 0.9 cm corresponding to 5 weeks 5 day gestational age IMPRESSION: Findings are suspicious for left ectopic , recommend short-term follow-up transvaginal pelvic sonography
--- NOTE | 2024-07-11 10:55 | EDNOTE_ITS ---
ED OB Contraction Preg RMI/HPI General Chief complaint: Vaginal Bleeding Stated complaint: VAGINAL BLEEDING X 10 DAYS; 7 WKS PREG; [id number] Time Seen by Provider: 07/11/24 10:39 Source: patient Arrival date/time: 07/11/24 10:29 34-year-old female with no known medical history presents to the emergency room with a chief complaint of vaginal bleeding x 10 days. Patient is currently 8 weeks she is a G3, P2. Mode of arrival: ambulatory Limitations: no limitations Related Data Home Medications ?Medication ?Instructions ?Recorded ?Confirmed No Known Home Medications 06/09/2406/12 Allergies Allergy/AdvReac Type Severity Reaction Status Date / Time No Known Allergies Allergy Verified 07/11/24 10:33 Review of Systems Review of Systems Systems Reviewed: All systems reviewed, normal except as documented Constitutional Constitutional: Reports system reviewed and no additional complaints, except as documented, Denies fatigue, Denies fever(s), Denies headache(s) and Denies weakness Eyes Eyes: Reports system reviewed and no additional complaints, except as documented, Denies blurry vision and Denies change in vision ENT Ears, Nose, Mouth, and Throat: Reports system reviewed and no additional complaints, except as documented, Denies otalgia, Denies headache(s), Denies nasal congestion, Denies throat swelling and Denies vertigo Cardiovascular Cardiovascular: Reports system reviewed and no additional complaints, except as documented, Denies chest pain, Denies dyspnea and Denies dyspnea on exertion Respiratory Respiratory: Reports system reviewed and no additional complaints, except as do cumented, Denies chest congestion, Denies cough, Denies dyspnea, Denies dyspnea on exertion and Denies wheezing Gastrointestinal Gastrointestinal: Reports system reviewed and no additional complaints, except as documented, Denies abdominal pain, Denies cramping, Denies nausea and Denies vomiting Genitourinary Genitourinary: Reports system reviewed and no additional complaints, except as documented, Reports abnormal vaginal bleeding, Reports dysuria and Reports pelvic pain Musculoskeletal Musculoskeletal: Reports system reviewed and no additional complaints, except as documented and Denies back pain Integumentary/Breasts Skin/Breast: Reports system reviewed and no additional complaints, except as documented and Denies wounds Neurologic Neurologic: Reports system reviewed and no additional complaints, except as documented, Denies confusion, Denies headache(s), Denies lack of coordination, Denies vertigo and Denies weakness Psychiatric Psychiatric: Reports system reviewed and no additional complaints, except as documented, Denies anxiety, Denies confusion, Denies depression, Denies paranoia, Denies suicidal ideation and Denies tactile hallucinations Endocrine Endocrine: Reports system reviewed and no additional complaints, except as documented and Denies fatigue Hematologic/Lymphatic Hematologic/Lymphatic: Reports system reviewed and no additional complaints, except as documented and Denies lymphadenopathy Allergic/Immunologic Allergic/Immunologic: Reports system reviewed and no additional complaints, except as documented, Denies throat swelling, Denies urticaria and Denies wheezing Past Medical History Past Medical History NEUROLOGIC: Negative Neurological Disorders, Cerebrovascular Accident, Transient Ischemic Attacks (TIA), Dementia, Alzheimer's Disease, Parkinson's Disease, Brain Tumor, Meningitis, Seizures or Guillain-[place] Syndrome CARDIAC: Negative Cardiac Disorders, Myocardial Infarction, Cardiac Arrhythmia, Atrial Fibrillation, Angina, Heart Murmur, Coronary Artery Disease, Atherosclerotic Heart Disease, Peripheral Vascular Disease, Hypercholesterolemia, Congestive Heart Failure, Edema, Cellulitis, Hypertension or Varicose Veins RESPIRATORY: Negative Chronic Obstructive Pulmonary Disease (COPD), Asthma, Tuberculosis, Sleep Apnea, Cough, Sputum Production, Wheezing, Chest Deformities, Smoking, Smoking Cessation Counseling, Smoking Exposure or Tobacco Use GASTROINTESTINAL: Positive Gastrointestinal Disorders and Gall Bladder Disease; Negative Liver Cancer, Hepatitis, Irritable Bowel or Crohn's Disease GENITOURINARY: Positive Genitourinary Disorders and Kidney Stones (ESWL); Negative Renal Disease REPRODUCTIVE: Positive Previous Pregnancies (X2); Negative Breast Cancer, Endometriosis, Fibroids or Genital Herpes MUSCULOSKELETAL: Negative Musculoskeletal Disorders, Muscular Dystrophy or Gout ENT: Negative Cataracts, Glaucoma, Blind, Retinal Detachment, Macular Degeneration, Ear Infection, Deafness or Eye Prosthesis ENDOCRINE: Negative Endocrine Disorders, Diabetes Mellitus Type 1, Diabetes Mellitus Type 2 (FATHER), [place]'s Syndrome or Christian's Disease HEMATOLOGIC: Negative Blood Disorders, Anemia, Leukemia, Hemophilia, Thalassemia or Sickle Cell Disease PSYCHO/SOCIAL: Negative Schizophrenia, Recreational Drug Use, Bipolar Disorder, Depression or Anxiety OTHER HISTORY: Positive Chicken Pox; Negative Hospitalization, Autoimmune Disease, Down Syndrome, Autism, Developmental Delay, Cosmetic Surgery, Shingles, Falls, Blood Transfusions, Bloo d Transfusion Reaction, Anesthesia Reactions, Chemotherapy, Radiation Therapy, MRSA, Measles, Mumps, Cancer or Breast Cancer Family History FAMILY HISTORY: Positive Family Cancer (Colon) and Family Surgery (MOTHER); Negative Family Psychiatric Problems, Family Respiratory Disorders, Family Cardiac Disorders, Family Gastrointestinal Problems or Family Anesthesia Reaction Surgical History SURGICAL: Positive Abdominal Surgery; Negative Cardiac Surgery, Pacemaker, Endocrine Surgery, Ear Surgery, Eye Surgery, Nose Surgery, Oral Surgery, Joint Replacement or Neurologic Surgery Social History SMOKING STATUS: Never smoker SECOND HAND EXPOSURE: No SUBSTANCE USE: does not use ED Exam General Limitations: Present no limitations General appearance: Present alert and in no apparent distress Head Head exam: Present atraumatic Eye Eye exam: Present normal appearance, PERRL and EOMI ENT ENT exam: Present normal exam, normal oropharynx and mucous membranes moist Neck Neck exam: Present normal inspection, full ROM and trachea midline Chest Chest inspection: Present normal inspection and symmetric chest wall rise Respiratory Respiratory exam: Present normal lung sounds bilaterally Cardiovascular Cardiovascular exam: Present regular rate, normal rhythm and normal heart sounds Abdominal Exam Abdominal exam: Present soft, tenderness and normal bowel sounds Abdominal tenderness: Present suprapubic Extremities Exam Extremities exam: Present normal inspection and full ROM Back Exam Back exam: Present normal inspection and full ROM Neurological Exam Neurological exam: Present alert, oriented X3 and CN II-XII intact Psychiatric Psychiatric exam: Present normal affect and normal mood Skin Skin exam: Present warm, dry, intact and normal color Course Quality Measures none Orders Category Date Time Status Patient Condition Routine Admission 07/11/24 Ordered Apply SHANA Gates NOW Care 07/11/24 12:49 Active COVID-19 Screening Questionnaire NOW Care 07/11/24 13:20 Active Clip Operative Site as Needed X1 Care 07/11/24 12:49 Active Consent [Obtain Written Consent For:] .NOW Care 07/11/24 12:49 Active Decision to Admit X1 Care 07/11/24 13:20 Active NPO NOW Care 07/11/24 12:49 Active SCD [Sequential Compression Device] NOW Care 07/11/24 12:49 Active Diet NPO (NOW) Diet 07/11/24 12:49 Active US OB <= 14 weeks fetus Stat Exams 07/11/24 10:54 Completed ABO/RH Type Stat Lab 07/11/24 11:28 Completed Antibody Screen Stat Lab 07/11/24 11:28 Completed Beta HCG,Quantitative Stat Lab 07/11/24 11:28 Completed CBC Stat Lab 07/11/24 11:28 Completed CMP [Comprehensive Metabolic Panel] Stat Lab 07/11/24 11:28 Completed UA [Urinalysis] Stat Lab 07/11/24 11:13 Completed Ringers Lactated 1000 ml [Lactated Ringers] 1,000 ml Med 07/11/24 13:00 Active IV 30 mls/hr ceFAZolin/D5W 2 GM IV [Ancef 2gm Ivpb] Med 07/11/24 13:00 Active 2 gm in 100 ml IV X1 Code Status Routine Oth 07/11/24 12:49 Ordered Transfer Order Routine Transfer 07/11/24 12:47 Active Vital Signs Vital signs: Vital Signs Temperature 98.8 F 07/11/24 10:49 Pulse Rate 84 07/11/24 10:49 Respiratory Rate 18 07/11/24 10:49 Blood Pressure 131/83 H 07/11/24 10:49 Pulse Oximetry (%) 99 07/11/24 10:49 Oxygen Delivery Method Room Air 07/11/24 10:49 O2 saturation 99% within normal limits Vaginal Bleeding MDM Narrative MDM Narrative: 34-year-old female with no known medical history presents to the emergency room with a chief complaint of vaginal bleeding x 10 days. Patient is currently 8 weeks she is a G3, P2. Patient is hemodynamically stable and in no apparent distress. She is not tachypneic not tachycardic and afebrile Physical examination shows some left-sided pelvic pain. She is also been bleeding for the last 10 days. Ultrasound OB was completed and the findings are suspicious for a left ectopic . Dr Steiner the JUKE BOX MECHANIC on-call was consulted and he came to evaluate the patient. Dr. Larry states he will take urine for surgery and admit the patient. Patient data External records reviewed:: [facility] previous records Clinical information provided by:: patient Social determinants that could affect healthcare access:: none Patient has the following chronic illnesses:: No chronic illness How is presenting disease/condition affected by chronic disease/condition?: no chronic disease Evaluation data The following diagnostics were reviewed and interpreted by me:: lab results and radiology exam(s) Lab and/or radiology exams considered but not ordered:: Labs and radiology exams considered and ordered Interpretation Summary: OB ultrasound-Findings: Uterus 9.7 cm endometrial stripe 0.5 cm No intrauterine gestation Right ovary 2.9 cm arterial flow Left ovary 3.1 cm arterial flow Gestational sac like area adjacent to the left ovary 0.9 cm corresponding to 5 weeks 5 day gestational age IMPRESSION: Findings are suspicious for left ectopic , recommend short-term follow-up transvaginal pelvic sonography Medications / Prescriptions Medications or Prescriptions considered but not ordered:: No medication given Medication administrations:: Medication Administration History Lactated Ringer's (Lactated Ringers) 1,000 mls @ 30 mls/hr IV .Q24H JAVED Stop: 08/10/24 12:59 Cefazolin Sodium (Ancef 2gm Ivpb) 2 gm in 100 mls @ 200 mls/hr IV X1 ONE Stop: 07/11/24 13:29 No medication given Consultations Consultation(s) initiated? (list below): Yes Consultation #1 (Physician, Specialty, Details): Dr Steiner JUKE BOX MECHANIC on-call Time: 12:45 Diagnosis Vaginal Bleeding Differential Diagnosis: missed , threatened , dysfunctional uterine bleeding, ectopic without intrauterine , vaginal bleeding and other (Ectopic ) Most likely diagnosis given after review of the tests above:: Ectopic Admission Indicated Admission indicated?: indicated Admission Request Was there a request for admission?: Yes Admission Attestation Admission request attestation: Discussed case with [] from Hospitalist service regarding admission. Discussed patients ED course, exam findings, labs, and radiology results. The Hospitalist [agrees,declines] to accept the patient for admission. Disposition Plan Disposition Plan: Admit Discharge Plan Plan Patient Disposition: Admit Acute Care w/in Hospital Discharge Disposition comment: Stable Prescriptions/Referrals Prescriptions/Med Rec: No Action No Known Home Medications Referrals: Paris Mccormack PA-C [Primary Care Provider] - In 1 week Problem List Clinical Impression: Ectopic , tubal, Vaginal bleeding Patient/Caregiver Discharge Instructions Education Materials: Ectopic Print Language: Malaysian Stand Alone Forms: Honey Award Info., Patient Portal Info Letter PA/FRANK Supervising Physician PA/TAR HEAT EXCHANGER CLEANER Supervising Physician: Dr. Lott
[2024-07-11 11:18] LABS: Collection Type, Urine Clean Catch
[2024-07-11 11:31] LABS: Bacteria,Urine Rare; Bilirubin,Urine Negative (Negative); Blood,Urine 3+ (Negative); Clarity,Urine Clear (Clear/Hazy); Color,Urine Lt-Yellow (Lt Yel-Yel); Glucose, Urine Negative (Negative); Ketones,Urine Negative (Negative); Leukocyte Esterase,Urine Positive (Negative); Nitrite,Urine Negative (Negative); Protein,Urine Negative (Neg - Trace); RBC,Urine 6 /hpf (0-3); Specific Gravity,Urine 1.019 (1.001-1.035); Squamous Epithelial Cell,Urine 6 /hpf (0-5); Urobilinogen,Urine Negative mg/dL (0.0-1.0); WBC,Urine 6 /hpf (0-5)
[2024-07-11 11:42] LABS: Basophils # (Auto) 0.1 Thou/mm3 (0.0-0.2); Basophils % (Auto) 1 % (0-2.5); Eosinophils # (Auto) 0.1 Thou/mm3 (0.0-0.5); Eosinophils % (Auto) 1 % (0-10); Hematocrit 39.1 % (36.0-46.0); Hemoglobin 14.1 g/dL (12.0-16.0); Immature Granulocytes % (Auto) 1 % (0-0); Immature Granulocytes Auto 0.07 Thou/mm3 (0.00-0.00); Lymphocytes # (Auto) 2.5 Thou/mm3 (1.0-4.8); Lymphocytes % (Auto) 31 % (10-50); Mean Corpuscular HGB Conc 36.1 g/dl (31.0-37.0); Mean Corpuscular Hemoglobin 32.1 pg (25.0-35.0); Mean Corpuscular Volume 89 fL (80-100); Monocytes # (Auto) 0.6 Thou/mm3 (0.0-0.8); Monocytes % (Auto) 7 % (0-12); Neutrophils # (Auto) 4.9 Thou/mm3 (1.8-7.7); Neutrophils % (Auto) 59 % (37-80); Nucleated Red Blood Cell % 0 /100 WBC (0); Platelet Count 282 Thou/mm3 (140-440); RDW Standard Deviation 41.8 fL (36.4-46.3); Red Blood Count 4.39 Miln/mm3 (4.00-5.20); White Blood Count 8.2 Thou/mm3 (3.6-11.0)
[2024-07-11 12:26] LABS: Alanine Aminotransferase 42 U/L (10-49); Albumin, Serum 4.3 gm/dL (3.5-5.0); Albumin/Globulin Ratio 1.5 (1.2-2.2); Alkaline Phosphatase 51 U/L (46-116); Anion Gap 9 (7-16); Aspartate Amino Transferase 24 U/L (0-34); BUN/Creatinine Ratio 8 Ratio (12-20); Beta HCG,Quantitative 6342 mIU/mL (<5.0); Bilirubin,Total 0.7 mg/dL (0.3-1.2); Blood Urea Nitrogen 5 mg/dL (9-23); Calcium 8.9 mg/dL (8.3-10.6); Calcium (Corrected) 8.9 mg/dL (8.5-10.1); Chloride 106 mMol/L (98-107); Creatinine (Component) 0.6 mg/dL (0.6-1.3); Estimated Creatinine Clearance 137.6 mL/min (>60); Globulin 2.9 gm/dL (2.3-3.5); Glucose 91 mg/dL (74-106); Osmolality,Calculated 276 (275-295); Potassium 3.9 mMol/L (3.4-5.1); Sodium 140 mMol/L (136-145); Total Protein 7.2 gm/dL (5.7-8.2); eGFR > 60 See Note
--- NOTE | 2024-07-11 12:51 | PD.GYNHP ---
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 Vital Signs Temp Pulse Resp BP Pulse Ox O2 Del Method 98.8 F 84 18 131/83 H 99 Room Air 07/11/24 10:49 07/11/24 10:49 07/11/24 10:49 07/11/24 10:49 07/11/24 10:49 07/11/24 10:49 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 - Results Labs 07/11/24 11:28 07/11/24 11:28 Labs: Short CBC 07/11/24 Range/Units 11:28 WBC 8.2 (3.6-11.0) Thou/mm3 Hgb 14.1 (12.0-16.0) g/dL Hct 39.1 (36.0-46.0) % Plt Count 282 D (140-440) Thou/mm3 BMP 07/11/24 11:28 Sodium 140 Potassium 3.9 Chloride 106 Carbon Dioxide 25.0 BUN 5 L Creatinine 0.6 Glucose 91 Calcium 8.9 Liver Function 07/11/24 Range/Units 11:28 Total Bilirubin 0.7 (0.3-1.2) mg/dL AST 24 (0-34) U/L ALT 42 (10-49) U/L Alkaline Phosphatase 51 (46-116) U/L Albumin 4.3 (3.5-5.0) gm/dL Urine 07/11/24 Range/Units 11:13 Urine Color Lt-Yellow (Lt Yel-Yel) Urine Clarity Clear (Clear/Hazy) Urine pH 6.0 (5.0-7.0) Ur Specific [place] 1.019 (1.001-1.035) Urine Protein Negative (Neg - Trace) Urine Glucose (UA) Negative (Negative) Quality Measures Quality Measures none
[2024-07-11] MEDS: RINGERS LACTATED 1000 ML 1,000 ML 30 ML IV (13:58)
--- NOTE | 2024-07-11 14:08 | PC.NURSE ---
REPORT GIVEN TO ANIBAL ON OR FLOOR
--- NOTE | 2024-07-11 14:30 | PC.NURSE ---
PT TO OR
--- NOTE | 2024-07-11 15:30 | SUR.PHASEI ---
1530: Pt. wakes to name then drifts back to sleep, vitals stable, breathing unlabored, no complaint of pain or nausea, x3 dermabond sites to ABD CDI, no active bleed noted, report received from Dre DA SILVA and Marco DAVENPORT.
--- NOTE | 2024-07-11 16:45 | ESHP_ITS ---
RE: ELTON COOPER : 1990 DATE OF ADMISSION: 07/11/2024 HISTORY OF PRESENT ILLNESS: This is a 34-year-old who presents to the emergency room with vaginal bleeding and is found to have a left adnexal mass on pelvic ultrasound with a quantitative beta hCG of over 6,000 with no intrauterine with findings suspicious for ectopic . The [facility]. She was last seen on 07/09/2024. ALLERGIES: NO KNOWN DRUG ALLERGIES. MEDICATIONS: multivitamin 1 tablet p.o. daily. PAST MEDICAL HISTORY: Gallstones and kidney stones. PAST SURGICAL HISTORY: Laparoscopic cholecystectomy 10/2021, cystoscopy, right ureteral stent insertion and ESWL for right ureteropelvic junction stone. OBSTETRIC HISTORY: Two previous full-term normal vaginal deliveries. FAMILY HISTORY: Father: Diabetes. Mother: No medical problems. REVIEW OF SYSTEMS: She denies any chest pain, palpitations, cough, fever, shortness of breath, or lower extremity pain. PHYSICAL EXAMINATION: VITAL SIGNS: Blood pressure 131/83 mmHg, heart rate 84, respirations 18, temperature 98.8, pulse ox is 99% on room air. HEENT: Oropharynx and sclerae are clear. LUNGS: Clear to auscultation bilaterally. HEART: Regular rate and rhythm. ABDOMEN: Old trocar scars noted. EXTREMITIES: Nontender. SKIN: No gross rashes or lesion. NEUROLOGIC: No focal deficit. ASSESSMENT: Left tubal ectopic . PLAN: Diagnostic laparoscopy, possible salpingostomy, possible salpingectomy. Informed consent was obtained. The patient was made aware of the risks, complications, alternatives, and benefits of the proposed procedure and she agrees. She is aware of the risk of injury to bowel or bladder, uterus, ureters, adjacent organs, pulmonary embolism, deep vein thrombosis, hematoma, pelvic infection, wound infection, reoperation to repair, injury to internal organs, the possibility of procedure is unable to be completed due to technical difficulties or severe adhesions. DT: 13:00:24 TT: 16:37:00 Ref: [id number] - TID: [id number] MTDD
[2024-07-11] MEDS: METOCLOPRAMIDE INJ 5 MG/ML VIAL 2 ML 10 MG IVP (16:49)
[2024-07-11] MEDS: ONDANSETRON INJ 2 MG/ML INJ 2 ML 4 MG IV (16:58)
--- NOTE | 2024-07-11 17:20 | SUR.PHASEII ---
1720: Pt. AAOx4, vitals stable, breathing unlabored, no complaint of pain or nausea, x3 dermabond sites to ABD CDI, no active bleed noted, pt. tolerated sips of soda well, pt. ambulated to wheelchair with steady gait and no assist, no complications. Gave discharge instructions to the pt. and her ride, both verbalized understanding and had no further questions. Pt. left with all personal belongings.
--- NOTE | 2024-07-14 07:30 | ESOP_ITS ---
RE: ELTON COOPER : 1990 DATE OF OPERATION: 07/11/2024 PREOPERATIVE DIAGNOSIS: Left tubal ectopic . POSTOPERATIVE DIAGNOSIS: Left tubal ectopic . PROCEDURE PERFORMED: Diagnostic laparoscopy and left partial salpingectomy. SURGEON: Valeriano Steiner DO OPTO MECHANICAL TECHNICIAN: TRAN Caicedo ANESTHESIA: General. ANESTHESIOLOGIST: Boyd Coombs CRNA ESTIMATED BLOOD LOSS: 5 mL. COMPLICATIONS: None. COUNTS: Correct. PATHOLOGY: Left partial fallopian tube with ectopic . FINDINGS: Normal-appearing uterus, right fallopian tube, and bilateral ovaries with no evidence of endometriosis or pelvic adhesions. 10 mL of blood was found in the cul-de-sac. The left fallopian tube contained a 2 x 1.5 cm ectopic in the mid-ampullary segment. DESCRIPTION OF PROCEDURE: After appropriate informed consent was obtained, and the patient was made aware of the risks, complications, alternatives, and benefits of the proposed procedure, she was taken to the operating room where she underwent induction of general anesthesia. The patient was placed in the dorsal lithotomy position. She was prepped and draped in the usual sterile fashion. A time-out was performed and the sponge stick was placed in the vagina. Attention was then turned to the abdomen where the physician regowned, gloved and a 5-mm incision was made in the umbilical fold with tenting of the abdomen. A Veress needle was inserted. Saline confirmed intraabdominal placement. Artificial pneumoperitoneum was created to 12 mmHg. The Veress needle was then removed. A 5-mm trocar was inserted with tenting up the abdomen. The laparoscope was connected to Video camera, was then utilized to visualize the pelvis. The patient was placed in Trendelenburg and with a leftward tilt. A second incision was made in the midline, 2 cm of symphysis pubis. Through this 10-mm incision, a 10-mm trocar was inserted under direct visualization of the laparoscope. Attention was then turned to the left lower quadrant. Through this 5-mm incision in the left lower quadrant, a 5 mm trocar was inserted under direct visualization of the laparoscope. Using the Lara-Get grasper, the left fallopian tube was grasped and using the Harmonic scalpel [id number] Renita, the left partial salpingectomy was performed and hemostasis was achieved. The specimen was removed and sent to Pathology. All instruments were removed from the abdomen after the carbon dioxide was removed from the peritoneal cavity. The fascia was closed with 0 Vicryl and the incisions were closed with 4-0 Monocryl and covered with Dermabond and prior to that infiltrated with Marcaine. Attention was then turned to the vagina where the sponge stick was removed. She was reversed from general anesthesia in the supine position and transferred to the recovery room in stable condition. She tolerated the procedure well. Counts were correct. I discussed with the patient's family the nature of her condition, intraoperative findings, expectations for recovery. All questions answered. DT: 15:31:20 TT: 21:04:00 Ref: [id number] - TID: [id number]
== END 2024-07-11 17:20 | disposition home or self-care (01) ==
LOC: SERX 15:51 → S2EX 07-23 13:38
PROVIDERS: Nurse Practitioner Family; Emergency Provider Emergency Medicine; PCP Physician Assistant Medical; Visit Provider Specialist
PROC: (CPT 49320; principal; 2024-07-11 14:30)
DX: O00.112 Left tubal pregnancy with intrauterine pregnancy (principal)
CPT/HCPCS: 59151; 36415; 76801; 80053; 81001; 84702; 85025; 86850; 86900; 86901; 99285; A4217; A4649; J0131; J0690; J1171; J1885; J2250; J2405; J2704; J2765; J3010; J3490; J7120; J1596

== ENCOUNTER 2024-07-14 09:25 | Outpatient (AMB) | payer MEDICAID, SELFPAY ==
--- NOTE | 2024-07-14 09:38 | GYNCLNT_ITS ---
Vital Signs 07/14/24 09:42 Height 1.57 m Height Method Measured Weight 87.6 kg Weight Measurement Method Standing Scale BMI 35.3 BP 131/88 H Blood Pressure Source Automatic Cuff Blood Pressure Location Left Upper Arm Position Sitting Respiration 16 Pulse 85 Pulse Source Monitor Temp 98.3 F Temp Source Oral Pulse Oximetry (%) 98 Oxygen Delivery Method Room Air Allergies/Home Meds Allergies & Medications Allergies No Known Allergies Allergy (Verified 07/14/24 09:43) Medication Reconciliation No Known Home Medications 06/09/24 [History Confirmed 07/14/24] hydrocodone 5 mg-acetaminophen 325 mg tablet 1 tab PO Q6H PRN pain #20 tabs 07/11/24 [Rx Confirmed 07/14/24] Intake Visit Data Collection New Patient or Established: Established Patient (seen at [facility] within 3 years) Reason for Visit:: Emergency Room follow up Seen by Clinical Staff ONLY (RN/MA): No Snowboard Designer Required: No Do You Feel Safe at Home: Yes Authorities Contacted: N/A PCP or OBGYN visit in last 3 months: Yes Are you currently on any form of Control: No Pain Present Currently: No Pain Scale Used: Lewis-Bravo/Numerical Pain scale:: 0 Smoking Status Smoking Status: Never smoker 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 1. Little interest or pleasure in doing things: not at all PHQ-9 8. Moving or speaking so slowly that other people could have noticed? - Or the opposite - being so fidgety or restless that you have been moving around a lot more than usual: not at all Source: Developed by Drs. Dheeraj Toro, Felicitas Fitzpatrick, Herb Powell and colleagues, with an educational eduar from [employer]. Depression screen completed yes Social History Living Situation History Lives With: Family Housing: House Tobacco History Smoking Status: Never smoker Second Hand Smoke Exposure: No Alcohol History Alcohol Intake: Never Domestic Abuse History Do You Feel Safe at Home: Yes Past Medical History Past Medical History Have you ever been diagnosed with any of the following: Neurological Problems Cerebrovascular Accident (CVA): No Transient Ischemic Attacks (TIA): No Dementia: No Alzheimer's Disease: No Parkinson's Disease: No Brain Tumor: No Meningitis: No Seizures: No Guillain-Newport Syndrome: No Cardiology Problems Myocardial Infarction: No Cardiac Arrhythmia: No Atrial Fibrillation: No Angina: No Heart Murmur: No Coronary Artery Disease: No Atherosclerotic Heart Disease: No Peripheral Vascular Disease: No Hypercholesterolemia: No Congestive Heart Failure: No Edema: No Cellulitis: No Hypertension: No Varicose Veins: No Respiratory Problems Chronic Obstructive Pulmonary Disease (COPD): No Asthma: No Tuberculosis: No Sleep Apnea: No Hx Cough: No Cough: No Wheezing: No Chest Deformities: No Smoking: No Smoking Cessation Counseling: No Smoking Exposure: No Tobacco Use: No Stomache/Intestinal Problems Liver Cancer: No Hepatitis: No Gall Bladder Disease: Yes Irritable Bowel: No Crohn's Disease: No Genital/Urinary Problems Renal Disease: No Kidney Stones: Yes Reproductive Problems Breast Cancer: No Endometriosis: No Fibroids: No Genital Herpes: No Previous Pregnancies: Yes Musculoskeletal Problems Muscular Dystrophy: No Gout: No Head,Eye,Nose,Throat Problems Cataracts: No Glaucoma: No Blind: No Retinal Detachment: No Macular Degeneration: No Chronic Ear Infections: No Deafness: No Eye Prosthesis: No Endocrine Problems Diabetes Mellitus Type 1: No Diabetes Mellitus Type 2: No Rolando's Syndrome: No Christian's Disease: No Blood Problems Anemia: No Leukemia: No Hemophilia: No Thalassemia: No Sickle Cell Disease: No Psychologic Problems Schizophrenia: No Recreational Drug Use: No Bipolar Disorder: No Depression: No Anxiety: No Other Problems Hospitalization: No Down Syndrome: No Autism: No Developmental Delay: No Cosmetic Surgery: No Shingles: No Falls: No Blood Transfusions: No Blood Transfusion Reaction: No Anesthesia Reactions: No Chemotherapy: No Radiation Therapy: No MRSA: No Chicken Pox: Yes Measles: No Mumps: No Cancer: No Surgical History Angioplasty: No Cholecystectomy: Yes Pacemaker: No History of Present Illness HPI Narrative 34-year-old 3 para 2 for ED ER and surgical follow-up. Last. Was's Apr ruary 2024. Patient had been having bleeding and spotting off and on since then. On 5 2 patient called office complaining of bright red bleeding. And so patient was directed to the ER for care. On 5 2 patient had a repeat hCG drawn that was in the 6000's. So follow-up ultrasound was done and there was noted to be a left ovarian ectopic. And patient was taken to surgery then for explorato ry lap and partial left salpingectomy patient denies social habits. And patient denies any coexisting medical problems. Today she comes to office for work note. She reports that she is passing gas and having regular BM. And voiding. Minimal complaints of abdominal pain at incision sites. Patient is taking Tylenol for that. Still reports some vaginal bleeding but it is minimal. Review of Systems Review of Systems Systems Reviewed: All systems reviewed, normal except as documented Exam Narrative Physical exam: Abdomen is soft. Nontender to palpation. There is to 1 cm incisions mid abdomen near umbilicus. Both are closed. Healing. No redness noted no discharge noted no signs of infection. And then patient has 2 cm incision above the pubic hairline. That also was closed well with no signs of infection noted. General Limitations: no limitations General Appearance: alert, in no apparent distress, comfortable, cooperative, healthy appearing, well developed and well groomed Head Head exam: atraumatic, normocephalic and normal inspection Resp Respiratory exam: Present normal lung sounds bilaterally Card Cardiovascular exam: Present regular rate, normal rhythm and normal heart sounds Abdominal Abdominal exam: Present soft and normal bowel sounds Psych Psychiatric exam: Present normal affect and normal mood Results Objective Laboratory: 07/11 HC, Increase from 07/10: [id number], pelvic sono: 5w5 left ectopic ; Operative note in chart showing exploratory lap with partial Left salpingectomy Assessment & Plan Diagnosis / Problem List (1) Ectopic of left ovary: Status: Acute Plan note for off work x 1 week, no heavy lifting. regular diet, light exercise, ER precaution reviewed. RTC 2 week, repeat HCG and start contraception Additional Plan Follow Up: 2 Weeks (f/u ER visit and contraception) Office Procedures OB Clinic LOC & Office Proc's Nursing/Assessment Patient Status: Established Patient OB Clinic Nursing Assessment: Medication Reconciliation, Update PMH in EMR and Vital Signs OB Clinic Coordination of Care: Complex Care and Chronic Disease 1-5, Consent,records obtained, informed consent, Education Simp Pt/Fam, Results/Orders obtained and Staff clarify orders Established Patient Charge Established Patient Point Assignment: 90 Established Patient Point Charge: EP Level 3 (80-115)
[2024-07-14 09:42] VITALS: BP 131/88; PULSE 85; RESP 16; TEMP 36.8; O2SAT 98; BMI 35.3
== END 2024-07-14 09:56 | disposition home or self-care (01) ==
LOC: HODSOBC 09:25
PROVIDERS: PCP Physician Assistant Medical; Referring Provider Physician Assistant Medical; Supervising Provider Advanced Practice Midwife; Visit Provider Advanced Practice Midwife
DX: O00.202 Left ovarian pregnancy without intrauterine pregnancy (principal)
CPT/HCPCS: 99213; G0463

== ENCOUNTER 2024-07-30 14:17 | Outpatient (AMB) | payer MEDICAID, SELFPAY ==
--- NOTE | 2024-07-30 14:21 | AMB.GYNCLNOT ---
Allergies/Home Meds Allergies & Medications Allergies No Known Allergies Allergy (Verified 07/30/24 14:21) Medication Reconciliation No Known Home Medications 06/09/24 [History Confirmed 07/30/24] hydrocodone 5 mg-acetaminophen 325 mg tablet 1 tab PO Q6H PRN pain #20 tabs 07/11/24 [Rx Confirmed 07/30/24] Intake Visit Data Collection New Patient or Established: Established Patient (seen at [facility] within 3 years) Reason for Visit:: TELEMEDV Consent obtained for Telemed Visit: Yes Seen by Clinical Staff ONLY (RN/MA): No Registration Specialist Required: No Do You Feel Safe at Home: Yes Authorities Contacted: N/A PCP or OBGYN visit in last 3 months: Yes Date of Last PCP or OBGYN visit: 07/11/24 Hx Now: No Are you currently on any form of Control: No Pain Present Currently: No Pain Scale Used: Lewis-Bravo/Numerical Pain scale:: 0 Smoking Status Smoking Status: Never smoker 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 Menstrual regularity: regular Flow: normal Monthly: Yes Menopausal: No Currently sexually active: Yes 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 1. Little interest or pleasure in doing things: not at all 2. Feeling down, depressed, or hopeless: not at all Total score: 0 PHQ-9 3. Trouble falling or staying asleep, or sleeping too much: Not at all 4. Feeling tired or having little energy: Not at all 5. Poor appetite or overeating: Not at all 6. Feeling bad about yourself - or that you are a failure or have let yourself or your family down: Not at all 7. Trouble concentrating on things, such as reading the newspaper or watching television: Not at all 8. Moving or speaking so slowly that other people could have noticed? - Or the opposite - being so fidgety or restless that you have been moving around a lot more than usual: not at all 9. Thoughts that you would be better off or of hurting yourself in some way: Not at all Total score: 0 If you checked off any problems, how difficult have these problems made it for you to do your work, take care of things at home, or get along with other people?: not difficult at all Source: Developed by Drs. Dheeraj Toro, Felicitas Fitzpatrick, Herb Powell and colleagues, with an educational eduar from [employer]. Depression screen completed yes Social History Living Situation History Lives With: Family Housing: House Tobacco History Smoking Status: Never smoker Second Hand Smoke Exposure: No Alcohol History Alcohol Intake: Never Domestic Abuse History Do You Feel Safe at Home: Yes History of Present Illness HPI Narrative 34 yo for f/u on ectopic. patient had L salpingectomy 07/11/24 at [facility]. Dr Steiner was the surgeonpatient reports she is doing well. no PO complications. patient has returned to work. no resumption of menses. some spoting. last sex 1 week with condom. , no PMH,no social habit. wants another , plans to use OCP for 3-6 month Review of Systems Review of Systems Systems Reviewed: All systems reviewed, normal except as documented Exam Narrative Physical exam: Not done, virtual appointment Office Procedures OB Clinic LOC & Office Proc's Nursing/Assessment Patient Status: Established Patient OB Clinic Nursing Assessment: Update PMH in EMR OB Clinic Coordination of Care: Consent,records obtained, informed consent, Education Simp Pt/Fam, Results/Orders obtained and Staff clarify orders Established Patient Charge Established Patient Point Assignment: 45 Telehealth If patient is seen using Teleconference methods, complete New/Est section, but DO NOT kath points only kath the correct Telemed visit type Telemed Phone/Video with patient at home & Dr,PA,MARINE PIPE WELDER: Yes Assessment & Plan Diagnosis / Problem List (1) Ectopic of left ovary: Status: Acute Plan called patient for virtual visit, HCG today. no sex, will start OCP after HCG results. rtc 1 week for f/u and BC start Additional Plan Follow Up: 1 Week (BC start and results)
== END 2024-07-30 14:57 | disposition home or self-care (01) ==
LOC: HODSOBC 14:17
PROVIDERS: PCP Physician Assistant Medical; Referring Provider Physician Assistant Medical; Supervising Provider Advanced Practice Midwife; Visit Provider Advanced Practice Midwife
DX: O00.202 Left ovarian pregnancy without intrauterine pregnancy (principal); Z90.79 Acquired absence of other genital organ(s)
CPT/HCPCS: 99212; G0463